=== PATIENT | male | born 1945 | race American Indian/Alaskan Native ===

== ENCOUNTER 2019-05-25 16:28 | Observation (INO) | payer MEDICARE ==
--- NOTE | 2019-05-25 17:19 | Emergency Department Report ---
ED Chest Pain HPI - General Chief Complaint: Chest Pain Stated Complaint: CHEST PAIN Time Seen by Provider: 05/25/19 17:18 Source: patient, EMS Mode of arrival: Stretcher Limitations: No Limitations - History of Present Illness Initial Comments: is a 74-year-old male that presents to emergency room with complaints of chest pain 1 hour. Patient states it started in the center of his chest and radiating left upper extremity. Patient states the pain is better with rest and worse with exertion. Patient states it is a 10 out of 10 with exertion and a 3 out of 10 rest. Patient denies shortness of breath. Patient denies MO history. Patient states she has a past medical history of diabetes and hypertension. MD Complaint: chest pain -: Sudden Onset: during exertion Severity scale (0 -10): 5 Quality: aching Consistency: constant Improves With: rest Worsens With: exertion re: denies: nausea, vomting, diaphoresis, dyspnea, sense of impending doom Other Symptoms: denies: cough, fever, syncope, rash, acid taste in mouth, leg swelling, palpitations, burping Treatments Prior to Arrival: none Aspirin use within the Past 7 Days: (1) Yes - Related Data On Oral Contraceptives: No Allergies Allergy/AdvReac Type Severity Reaction Status Date / Time No Known Allergies Allergy Verified 05/25/19 20:47 Heart Score - HEART Score History: Moderately suspicious EKG: Non-specific Age: > 65 Risk factors: 1-2 risk factors Troponin: < normal limit HEART Score: 5 ED Review of Systems ROS: Stated complaint: CHEST PAIN Other details as noted in HPI Constitutional: denies: chills, fever Eyes: denies: eye pain, eye discharge, vision change ENT: denies: ear pain, throat pain Respiratory: denies: cough, shortness of breath, wheezing Cardiovascular: chest pain. denies: palpitations Endocrine: no symptoms reported Gastrointestinal: denies: abdominal pain, nausea, diarrhea Genitourinary: denies: urgency, dysuria Musculoskeletal: denies: back pain, joint swelling, arthralgia Skin: denies: rash, lesions Neurological: denies: headache, weakness, paresthesias Psychiatric: denies: anxiety, depression Hematological/Lymphatic: denies: easy bleeding, easy bruising ED Past Medical Hx - Past Medical History Previous Medical History?: Yes Hx Hypertension: Yes Hx Diabetes: Yes - Surgical History Past Surgical History?: No - Family History Family history: no significant - Social History Smoking Status: Former Smoker Substance Use Type: None ED Physical Exam - General Limitations: No Limitations General appearance: alert, in no apparent distress - Head Head exam: Present: atraumatic, normocephalic - Eye Eye exam: Present: normal appearance - ENT ENT exam: Present: mucous membranes moist - Neck Neck exam: Present: normal inspection - Respiratory Respiratory exam: Present: normal lung sounds bilaterally. Absent: respiratory distress, wheezes - Cardiovascular Cardiovascular Exam: Present: regular rate, normal rhythm. Absent: systolic murmur, diastolic murmur, rubs, gallop - GI/Abdominal GI/Abdominal exam: Present: soft, normal bowel sounds. Absent: tenderness - Rectal Rectal exam: Present: deferred - Extremities Exam Extremities exam: Present: normal inspection - Back Exam Back exam: Present: normal inspection - Neurological Exam Neurological exam: Present: alert, oriented X3 - Psychiatric Psychiatric exam: Present: normal affect, normal mood - Skin Skin exam: Present: warm, dry, intact, normal color. Absent: rash ED Course Vital Signs 05/25/19 05/25/19 05/25/19 17:13 17:19 17:30 Temperature 98.5 F Pulse Rate 112 H 110 H Respiratory 22 27 H Rate Blood Pressure 128/72 134/73 Blood Pressure 128/72 [Right] O2 Sat by Pulse 94 94 93 Oximetry 05/25/19 05/25/19 05/25/19 18:00 18:30 19:00 Temperature Pulse Rate 108 H 105 H 108 H Respiratory 18 22 18 Rate Blood Pressure 117/76 129/73 116/70 Blood Pressure [Right] O2 Sat by Pulse 93 92 Oximetry 05/25/19 05/25/19 05/25/19 19:18 19:30 19:41 Temperature 98.2 F Pulse Rate 110 H 109 H 107 H Respiratory 24 24 12 Rate Blood Pressure 128/80 128/80 Blood Pressure 128/80 [Right] O2 Sat by Pulse 99 Oximetry 05/25/19 05/25/19 05/25/19 19:51 20:00 20:11 Temperature Pulse Rate Respiratory 26 H 19 21 Rate Blood Pressure 128/80 130/83 130/83 Blood Pressure [Right] O2 Sat by Pulse Oximetry 05/25/19 20:20 Temperature Pulse Rate 110 H Respiratory 26 H Rate Blood Pressure 130/83 Blood Pressure [Right] O2 Sat by Pulse Oximetry - Reevaluation(s) Reevaluation #1: Discussed all results the patient. I discussed plan of patient. Patient will be admitted to the hospitalist service. Patient agrees to plan of care 05/25/19 19:14 - Consultations Consultation #1: Hospitalist consultation for admission. Hospitalist to admit patient. Bridge orders placed 05/25/19 19:14 TERRA score - Terra Score Age > 65: (1) Yes Aspirin use within the Past 7 Days: (1) Yes 3 or more CAD Risk Factors: (0) No 2 or more Angina events in past 24 hrs: (0) No Known CAD with more than 50% Stenosis: (0) No Elevated Cardiac Markers: (0) No ST Deviation Greater than 0.5mm: (0) No TERRA Score: 2 ED Medical Decision Making - Lab Data Result diagrams: 05/25/19 18:17 05/25/19 18:17 - EKG Data -: EKG Interpreted by [facility] EKG shows normal: sinus rhythm, axis, intervals, QRS complexes, ST-T waves Rate: tachycardia - Radiology Data Radiology results: report reviewed, image reviewed - Medical Decision Making Patient is a 74-year-old male presents emergency room with complaints of chest pain. Patient chest pain occurs during exertion and relieved with rest. Patient has history of diabetes. Patient's heart score greater than 2. Patient will be admitted to the hospital service for further evaluation treatment. Patient will require rule out for ACS. Patient's chest x-ray shows no acute findings. Patient's EKG and cardiac workup negative. Patient's labs unremarkable except for hyperglycemia. - Differential Diagnosis ACS. Chest pain. Diabetes. Critical Care Time: Yes Critical care attestation.: If time is entered above; I have spent that time in minutes in the direct care of this critically ill patient, excluding procedure time. 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
[2019-05-25] MEDS ORDERED: ASPIRIN PO ONE (18:13)
[2019-05-25 18:28] LABS: Basophils # (Auto) 0.1 K/mm3 (0.0-0.1); Basophils % (Auto) 1.3 % (0.0-1.8); Eosinophils # (Auto) 0.1 K/mm3 (0.0-0.4); Eosinophils % (Auto) 1.5 % (0.0-4.3); Hematocrit 52.7 % (35.5-45.6); Hemoglobin 17.8 gm/dl (11.8-15.2); Lymphocytes # (Auto) 0.8 K/mm3 (1.2-5.4); Lymphocytes % (Auto) 13.8 % (13.4-35.0); Mean Corpuscular HGB Conc 34 % (32-34); Mean Corpuscular Volume 89 fl (84-94); Monocytes # (Auto) 0.4 K/mm3 (0.0-0.8); Monocytes % (Auto) 6.5 % (0.0-7.3); Platelet Count 231 K/mm3 (140-440); Red Blood Count 5.93 M/mm3 (3.65-5.03); Red Cell Distribution Width 14.1 % (13.2-15.2)
[2019-05-25 18:51] LABS: Alanine Aminotransferase 11 units/L (7-56); Albumin 3.9 g/dL (3.9-5); BUN/Creatinine Ratio 19; Blood Urea Nitrogen 19 mg/dL (9-20); Calcium 9.5 mg/dL (8.4-10.2); Hemolysis Index 16
--- NOTE | 2019-05-25 19:20 | XRay Report ---
CHEST 1 VIEW INDICATION: Chest Pain COMPARISON: One day prior. FINDINGS: Support devices: None Heart: Normal Lungs/Pleura: No acute pulmonary or pleural findings. IMPRESSION: 1. Negative study. Signer Name: Yeison Armenta MD Signed: 05/25/2019 7:16 PM Workstation Name: [id number]
[2019-05-25] MEDS ORDERED: TYLENOL PO PRN (20:34)
[2019-05-25] MEDS ORDERED: ZOFRAN IV PRN (20:34)
[2019-05-25] MEDS ORDERED: SODIUM CHLORIDE FLUSH SYRINGE 10 ML IV PRN (20:34)
--- NOTE | 2019-05-25 20:34 | History and Physical Report ---
History of Present Illness Date of examination: 05/25/19 Date of admission: 05/25/19 19:18 Chief complaint: Chest pain for one day History of present illness: 74-year-old male that presents to emergency room with complaints of chest pain 1 hour. Patient states it started in the center of his chest and radiating left upper extremity. Patient states the pain is better with rest and worse with exertion. Patient states it is a 10 out of 10 with exertion and a 3 out of 10 rest. Patient denies shortness of breath. Patient denies VT history. Patient states she has a past medical history of diabetes and hypertension. Past Medical History Previous Medical History?: Yes Hypertension: Yes Diabetes: Yes Surgical History None Social History Smoking Status: Former Smoker Substance Use Type: None Family History Hypertension Review of Systems ROS: Stated complaint: CHEST PAIN Other details as noted in HPI Constitutional: denies: chills, fever Eyes: denies: eye pain, eye discharge, vision change ENT: denies: ear pain, throat pain Respiratory: denies: cough, shortness of breath, wheezing Cardiovascular: chest pain. denies: palpitations Endocrine: no symptoms reported Gastrointestinal: denies: abdominal pain, nausea, diarrhea Genitourinary: denies: urgency, dysuria Musculoskeletal: denies: back pain, joint swelling, arthralgia Skin: denies: rash, lesions Neurological: denies: headache, weakness, paresthesias Psychiatric: denies: anxiety, depression Hematological/Lymphatic: denies: easy bleeding, easy bruising Medications and Allergies Allergies Allergy/AdvReac Type Severity Reaction Status Date / Time No Known Allergies Allergy Verified 05/25/19 20:47 Home Medications Medication Instructions Recorded Confirmed Last Taken Type Aspirin [Aspirin BABY CHEW TAB] 81 mg PO QDAY 05/25/19 05/25/19 Unknown History AtorvaSTATin [Lipitor] 20 mg PO QHS 05/25/19 05/25/19 Unknown History Calcium Carbonate/Vitamin D3 2 each PO DAILY 05/25/19 05/25/19 Unknown History [Calcium 250-Vit D3 125 Tablet] Cyanocobalamin [Vitamin B-12] 1,000 mcg IM QMONTH 05/25/19 05/25/19 04/28/19 08:00 History Empagliflozin [Jardiance] 10 mg PO DAILY 05/25/19 05/26/19 Unknown History Lidocaine [Lidocaine CREAM] 5 gm TP DAILY 05/25/19 05/25/19 Unknown History Losartan [Cozaar] 100 mg PO QDAY 05/25/19 05/25/19 Unknown History Metformin HCl [Glucophage] 1,000 mg PO BID 05/25/19 05/25/19 Unknown History Multivit with Iron,Minerals 1 each PO DAILY 05/25/19 05/25/19 Unknown History [Spectravite Senior] Sildenafil Citrate 100 mg PO DAILY PRN 05/25/19 05/25/19 Unknown History Sitagliptin Phosphate [Januvia] 100 mg PO DAILY 05/25/19 05/26/19 Unknown Histo ry Testosterone Cypionate 300 mg IM Q2W 05/25/19 05/25/19 05/13/19 08:00 History [Depo-Testosterone] amLODIPine [Norvasc] 10 mg PO DAILY 05/25/19 05/25/19 Unknown History glipiZIDE [Glucotrol] 10 mg PO BID 05/25/19 05/25/19 Unknown History hydroCHLOROthiazide [HCTZ] 25 mg PO QDAY 05/25/19 05/25/19 Unknown History raNITIdine HCl [Zantac] 150 mg PO BID PRN 05/25/19 05/25/19 Unknown History valACYclovir [Valtrex] 500 mg PO DAILY 05/25/19 05/26/19 Unknown History Exam - Constitutional Vitals: Temp Pulse Resp BP Pulse Ox 98.2 F 107 H 19 130/83 99 05/25/19 19:18 05/25/19 19:41 05/25/19 20:00 05/25/19 20:00 05/25/19 19:18 General appearance: Present: no acute distress, well-nourished - EENT Eyes: Present: PERRL ENT: hearing intact, clear oral mucosa - Neck Neck: Present: supple, normal ROM - Respiratory Respiratory effort: normal Respiratory: bilateral: CTA - Cardiovascular Heart Sounds: Present: S1 & S2. Absent: rub, click - Extremities Extremities: pulses symmetrical, No edema Peripheral Pulses: within normal limits - Abdominal General gastrointestinal: Present: soft, non-tender, non-distended, normal bowel sounds Male genitourinary: Present: normal - Integumentary Integumentary: Present: clear, warm, dry - Musculoskeletal Musculoskeletal: gait normal, strength equal bilaterally - Psychiatric Psychiatric: appropriate mood/affect, intact judgment & insight - Neurologic Neurologic: CNII-XII intact, moves all extremities Results - Labs CBC & Chem 7: 05/26/19 02:59 05/26/19 02:59 Labs: Laboratory Last Values WBC 6.1 K/mm3 (4.5-11.0) 05/25/19 18:17 RBC 5.93 M/mm3 (3.65-5.03) H 05/25/19 18:17 Hgb 17.8 gm/dl (11.8-15.2) H 05/25/19 18:17 Hct 52.7 % (35.5-45.6) H 05/25/19 18:17 MCV 89 fl (84-94) 05/25/19 18:17 MCH 30 pg (28-32) 05/25/19 18:17 MCHC 34 % (32-34) 05/25/19 18:17 RDW 14.1 % (13.2-15.2) 05/25/19 18:17 Plt Count 231 K/mm3 (140-440) 05/25/19 18:17 Lymph % (Auto) 13.8 % (13.4-35.0) 05/25/19 18:17 [place] % (Auto) 6.5 % (0.0-7.3) 05/25/19 18:17 Eos % (Auto) 1.5 % (0.0-4.3) 05/25/19 18:17 Baso % (Auto) 1.3 % (0.0-1.8) 05/25/19 18:17 Lymph # 0.8 K/mm3 (1.2-5.4) L 05/25/19 18:17 [place] # 0.4 K/mm3 (0.0-0.8) 05/25/19 18:17 Eos # 0.1 K/mm3 (0.0-0.4) 05/25/19 18:17 Baso # 0.1 K/mm3 (0.0-0.1) 05/25/19 18:17 Seg Neutrophils % 76.9 % (40.0-70.0) H 05/25/19 18:17 Seg Neutrophils # 4.7 K/mm3 (1.8-7.7) 05/25/19 18:17 Sodium 140 mmol/L (137-145) 05/25/19 18:17 Potassium 4.0 mmol/L (3.6-5.0) 05/25/19 18:17 Chloride 99.6 mmol/L (98-107) 05/25/19 18:17 Carbon Dioxide 25 mmol/L (22-30) 05/25/19 18:17 19 mmol/L 05/25/19 18:17 BUN 19 mg/dL (9-20) 05/25/19 18:17 1.0 mg/dL (0.8-1.5) 05/25/19 18:17 Estimated GFR > 60 ml/min 05/25/19 18:17 19 % 05/25/19 18:17 Glucose 179 mg/dL (75-100) H 05/25/19 18:17 Calcium 9.5 mg/dL (8.4-10.2) 05/25/19 18:17 0.60 mg/dL (0.1-1.2) 05/25/19 18:17 AST 13 units/L (5-40) 05/25/19 18:17 ALT 11 units/L (7-56) 05/25/19 18:17 64 units/L (35-129) 05/25/19 18:17 < 0.010 ng/mL (0.00-0.029) 05/25/19 18:17 6.9 g/dL (6.3-8.2) 05/25/19 18:17 3.9 g/dL (3.9-5) 05/25/19 18:17 1.3 % 05/25/19 18:17 Short CBC 05/25/19 05/26/19 Range/Units 18:17 02:59 WBC 6.1 5.2 (4.5-11.0) K/mm3 Hgb 17.8 H 16.8 H (11.8-15.2) gm/dl Hct 52.7 H 50.6 H (35.5-45.6) % Plt Count 231 225 (140-440) K/mm3 BMP 05/25/19 05/26/19 18:17 02:59 Sodium 140 143 Potassium 4.0 3.6 Chloride 99.6 103.4 Carbon Dioxide 25 27 BUN 19 21 H Creatinine 1.0 0.8 Glucose 179 H 112 H Calcium 9.5 9.2 Cardiac Enzymes 05/25/19 Range/Units 18:17 Troponin T < 0.010 (0.00-0.029) ng/mL Liver Function 05/25/19 05/26/19 Range/Units 18:17 02:59 Total Bilirubin 0.60 0.60 (0.1-1.2) mg/dL AST 13 11 (5-40) units/L ALT 11 10 (7-56) units/L Alkaline Phosphatase 64 60 (35-129) units/L Albumin 3.9 3.5 L (3.9-5) g/dL - Imaging and Cardiology EKG: report reviewed (Sinus tachycardia 111/min) Assessment and Plan Advance Directives: Yes (FC) VTE prophylaxis?: Chemical Plan of care discussed with patient/family: Yes - Patient Problems (1) Chest pain Current Visit: Yes Status: Acute Qualifiers: Chest pain type: unspecified Qualified Code(s): R07.9 - Chest pain, unspecified Plan to address problem: Chest pain r/o [place] protocol Lecxiscan in am serial troponins (2) T2DM (type 2 diabetes mellitus) Current Visit: Yes Status: Chronic Qualifiers: Diabetes mellitus skilled nursing insulin use: without termite technician use Plan to address problem: Coverage for now Check A1c (3) HTN (hypertension) Current Visit: Yes Status: Chronic Qualifiers: Hypertension type: essential hypertension Qualified Code(s): I10 - Essential (primary) hypertension Plan to address problem: Cont antihypertensives (4) DVT prophylaxis Current Visit: Yes Status: Acute Plan to address problem: On lOvenox and GI prophylaxis
[2019-05-25] MEDS ORDERED: REGLAN IV PRN (20:35)
[2019-05-25] MEDS ORDERED: DILAUDID IV PRN (20:35)
[2019-05-25] MEDS ORDERED: NACL 0.9% 1000 ML 1,000 ML IV SCH (21:00)
[2019-05-25] MEDS: LOVENOX SUB-Q SCH (21:59)
[2019-05-25] MEDS: PEPCID IV SCH (21:59)
[2019-05-25] MEDS: SODIUM CHLORIDE FLUSH SYRINGE 10 ML IV SCH (22:00)
[2019-05-26 04:13] LABS: Basophils # (Auto) 0.1 K/mm3 (0.0-0.1); Basophils % (Auto) 1.1 % (0.0-1.8); Eosinophils # (Auto) 0.2 K/mm3 (0.0-0.4); Eosinophils % (Auto) 3.8 % (0.0-4.3); Hematocrit 50.6 % (35.5-45.6); Hemoglobin 16.8 gm/dl (11.8-15.2); Lymphocytes # (Auto) 1.6 K/mm3 (1.2-5.4); Lymphocytes % (Auto) 29.9 % (13.4-35.0); Mean Corpuscular HGB Conc 33 % (32-34); Mean Corpuscular Volume 90 fl (84-94); Monocytes # (Auto) 0.5 K/mm3 (0.0-0.8); Platelet Count 225 K/mm3 (140-440); Red Blood Count 5.63 M/mm3 (3.65-5.03); Red Cell Distribution Width 14.2 % (13.2-15.2)
[2019-05-26 04:38] LABS: Alanine Aminotransferase 10 units/L (7-56); Albumin 3.5 g/dL (3.9-5); BUN/Creatinine Ratio 26; Blood Urea Nitrogen 21 mg/dL (9-20); Calcium 9.2 mg/dL (8.4-10.2); Hemolysis Index 16
[2019-05-26] MEDS ORDERED: LEXISCAN IV ONE (09:30)
[2019-05-26] MEDS ORDERED: CALCIUM CARBONATE PO SCH (10:00)
[2019-05-26] MEDS ORDERED: NON-FORMULARY (Sitagliptin Phosphate [Januvia] 100 MG) PO SCH (10:00)
[2019-05-26] MEDS ORDERED: BABY ASPIRIN PO SCH (10:00)
[2019-05-26] MEDS ORDERED: VITAMIN D3 PO SCH (10:00)
[2019-05-26] MEDS ORDERED: HCTZ PO SCH (10:00)
[2019-05-26] MEDS ORDERED: NORVASC PO SCH (10:00)
[2019-05-26] MEDS ORDERED: VALTREX PO SCH (10:00)
[2019-05-26] MEDS ORDERED: COZAAR PO SCH (10:00)
[2019-05-26] MEDS ORDERED: NON-FORMULARY (Metformin Hcl [Glucophage] 1,000 MG) PO SCH (10:00)
[2019-05-26] MEDS ORDERED: NON-FORMULARY (Losartan [Cozaar] 100 MG) PO SCH (10:00)
[2019-05-26] MEDS ORDERED: EMPAGLIFLOZIN 10 MG PO SCH (10:00)
--- NOTE | 2019-05-26 11:36 | Discharge Summary ---
Providers - Providers Date of Admission: 05/25/19 19:18 Date of discharge: 05/26/19 Attending physician: KYLAH GOODEN [facility] Condition: Stable Hospital course: Patient is a 74 yo man with a history of hypertension and diabetes mellitus who presented with chest pains (1) Chest pain Current Visit: Yes Status: Acute Qualifiers: Chest pain type: unspecified Qualified Code(s): R07.9 - Chest pain, unspecified Plan to address problem: Chest pain r/o [place] protocol Lecxiscan serial troponins negative (2) T2DM (type 2 diabetes mellitus) Current Visit: Yes Status: Chronic 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 Plan to address problem: Coverage for now Check A1c (3) HTN (hypertension) Current Visit: Yes Status: Chronic Qualifiers: Hypertension type: essential hypertension Qualified Code(s): I10 - Essential (primary) hypertension Plan to address problem: Cont antihypertensives (4) DVT prophylaxis Current Visit: Yes Status: Acute Plan to address problem: On lOvenox and GI prophylaxis Disposition: TO HOME OR SELFCARE Time spent for discharge: 31 minutes Exam - Physical Exam Narrative exam: Gen: WDWN, NAD, Awake, Alert, Orientated HEENT: NCAT, EOMI, PERRL, OP Clear Neck: supple, no adenopathy, no thyromegaly, no JVD CVS/Heart: RRR, normal S1S2, pulses present bilaterally Chest/Lungs: CTA B, Symmetrical chest expansion, good air entry bilaterally GI/Abdomen: soft, NTND, good bowel sounds, no guarding or rebound /Bladder: no suprapubic tenderness, no CVA or paraspinal tenderness Extermity/Skin: no c/c/e, no obvious rash MSK: FROM x 4 Neuro: CN 2-12 grossly intact, no new focal deficits Psych: calm - Constitutional Vitals: Temp Pulse Resp BP Pulse Ox 97.8 F 81 20 133/61 98 05/26/19 08:59 05/26/19 08:59 05/26/19 08:59 05/26/19 08:59 05/26/19 08:59 Plan Activity: other (no strenous activity unless cleared by PCP) Diet: low salt, diabetic Special Instructions: record daily BP diary, record blood sugar diary (three times a day) [facility] [Primary Care Provider[facility] - 3-5 Days
[2019-05-26] MEDS: TRADJENTA PO SCH (14:35)
[2019-05-26] MEDS: GLUCOTROL PO SCH ×2 (14:36→18:51)
[2019-05-26] MEDS: GLUCOPHAGE PO SCH ×2 (14:36→18:51)
[2019-05-26] MEDS: PEPCID IV SCH ×2 (14:36→21:27)
[2019-05-26] MEDS: SODIUM CHLORIDE FLUSH SYRINGE 10 ML IV SCH ×2 (14:37→21:28)
[2019-05-26] MEDS: LOVENOX SUB-Q SCH (21:29)
--- NOTE | 2019-05-26 23:08 | Progress Note ---
Assessment and Plan Assessment and plan: Patient is a 74 yo man with a history of hypertension and diabetes mellitus who presented with chest pains (1) Chest pain Current Visit: Yes Status: Acute Qualifiers: Chest pain type: unspecified Qualified Code(s): R07.9 - Chest pain, unspecified Plan to address problem: Chest pain r/o [place] protocol Lecxiscan serial troponins negative (2) T2DM (type 2 diabetes mellitus) Current Visit: Yes Status: Chronic Qualifiers: Diabetes mellitus long-term insulin use: without machine long goods helper use Plan to address problem: Coverage for now Check A1c (3) HTN (hypertension) Current Visit: Yes Status: Chronic Qualifiers: Hypertension type: essential hypertension Qualified Code(s): I10 - Essential (primary) hypertension Plan to address problem: Cont antihypertensives (4) DVT prophylaxis Current Visit: Yes Status: Acute Plan to address problem: On lOvenox and GI prophylaxis Still Waiting on stress test results, which was not ready by Dr. Bernarda Young. History Interval history: Patient seen and examined. NO new compliants Hospitalist Physical - Physical exam Narrative exam: Gen: WDWN, NAD, Awake, Alert, Orientated HEENT: NCAT, EOMI, PERRL, OP Clear Neck: supple, no adenopathy, no thyromegaly, no JVD CVS/Heart: RRR, normal S1S2, pulses present bilaterally Chest/Lungs: CTA B, Symmetrical chest expansion, good air entry bilaterally GI/Abdomen: soft, NTND, good bowel sounds, no guarding or rebound /Bladder: no suprapubic tenderness, no CVA or paraspinal tenderness Extermity/Skin: no c/c/e, no obvious rash MSK: FROM x 4 Neuro: CN 2-12 grossly intact, no new focal deficits Psych: calm - Constitutional Vitals: Temp Pulse Resp BP Pulse Ox 98.3 F 81 16 139/80 96 05/26/19 19:43 05/26/19 19:45 05/26/19 19:43 05/26/19 19:43 05/26/19 20:02 General appearance: Present: no acute distress, well-nourished Results - Labs CBC & Chem 7: 05/26/19 02:59 05/26/19 02:59 Labs: Laboratory Last Values WBC 5.2 K/mm3 (4.5-11.0) 05/26/19 02:59 RBC 5.63 M/mm3 (3.65-5.03) H 05/26/19 02:59 Hgb 16.8 gm/dl (11.8-15.2) H 05/26/19 02:59 Hct 50.6 % (35.5-45.6) H 05/26/19 02:59 MCV 90 fl (84-94) 05/26/19 02:59 MCH 30 pg (28-32) 05/26/19 02:59 MCHC 33 % (32-34) 05/26/19 02:59 RDW 14.2 % (13.2-15.2) 05/26/19 02:59 Plt Count 225 K/mm3 (140-440) 05/26/19 02:59 Lymph % (Auto) 29.9 % (13.4-35.0) 05/26/19 02:59 [place] % (Auto) 9.0 % (0.0-7.3) H 05/26/19 02:59 Eos % (Auto) 3.8 % (0.0-4.3) 05/26/19 02:59 Baso % (Auto) 1.1 % (0.0-1.8) 05/26/19 02:59 Lymph # 1.6 K/mm3 (1.2-5.4) 05/26/19 02:59 [place] # 0.5 K/mm3 (0.0-0.8) 05/26/19 02:59 Eos # 0.2 K/mm3 (0.0-0.4) 05/26/19 02:59 Baso # 0.1 K/mm3 (0.0-0.1) 05/26/19 02:59 Seg Neutrophils % 56.2 % (40.0-70.0) 05/26/19 02:59 Seg Neutrophils # 2.9 K/mm3 (1.8-7.7) 05/26/19 02:59 Sodium 143 mmol/L (137-145) 05/26/19 02:59 Potassium 3.6 mmol/L (3.6-5.0) 05/26/19 02:59 Chloride 103.4 mmol/L (98-107) 05/26/19 02:59 Carbon Dioxide 27 mmol/L (22-30) 05/26/19 02:59 16 mmol/L 05/26/19 02:59 BUN 21 mg/dL (9-20) H 05/26/19 02:59 0.8 mg/dL (0.8-1.5) 05/26/19 02:59 Estimated GFR > 60 ml/min 05/26/19 02:59 26 % 05/26/19 02:59 Glucose 112 mg/dL (75-100) H 05/26/19 02:59 POC Glucose 202 (70-105) H 05/26/19 12:38 7.7 % (4-6) H 05/25/19 21:00 Calcium 9.2 mg/dL (8.4-10.2) 05/26/19 02:59 0.60 mg/dL (0.1-1.2) 05/26/19 02:59 AST 11 units/L (5-40) 05/26/19 02:59 ALT 10 units/L (7-56) 05/26/19 02:59 60 units/L (35-129) 05/26/19 02:59 < 0.010 ng/mL (0.00-0.029) 05/26/19 13:05 6.5 g/dL (6.3-8.2) 05/26/19 02:59 3.5 g/dL (3.9-5) L 05/26/19 02:59 1.2 % 05/26/19 02:59 Active Medications - Current Medications Current Medications: Generic Name Dose Route Start Last Admin Trade Name Erlinq PRN Reason Stop Dose Admin Acetaminophen 650 mg 05/25/19 20:34 Tylenol PO Q4H PRN Pain MILD(1-3)/Fever >100.5/BEE Amlodipine Besylate 10 mg 05/26/19 10:00 05/26/19 14:36 Norvasc PO 10 mg DAILY [facility] Administration Aspirin 81 mg 05/26/19 10:00 05/26/19 14:35 Baby Aspirin PO 81 mg QDAY [facility] Administration Atorvastatin Calcium 20 mg 05/26/19 22:00 05/26/19 21:28 Lipitor PO 20 mg QHS [facility] Administration Calcium/Vitamin D 1 each 05/27/19 10:00 Oysco D 500 Mg-200 Unit PO DAILY [facility] Cyanocobalamin 1,000 mcg 05/29/19 08:00 Vitamin B-12 IM QMONTH [facility] Enoxaparin Sodium 40 mg 05/25/19 22:00 05/26/19 21:29 Lovenox SUB-Q 40 mg QDAY@2200 [facility] Administration Famotidine 20 mg 05/25/19 22:00 05/26/19 21:27 Pepcid IV Not Given BID [facility] Glipizide 10 mg 05/26/19 08:00 05/26/19 18:51 Glucotrol PO 10 mg BIDDIAB [facility] Administration Hydrochlorothiazide 25 mg 05/26/19 10:00 05/26/19 14:36 Hctz PO 25 mg QDAY [facility] Administration Hydromorphone HCl 0.5 mg 05/25/19 20:35 Dilaudid IV Q3H PRN Pain , Severe (7-10) Linagliptin 5 mg 05/26/19 10:00 05/26/19 14:35 Tradjenta PO 5 mg QDDIAB [facility] Administration Losartan Potassium 100 mg 05/26/19 10:00 05/26/19 14:35 Cozaar PO 100 mg QDAY [facility] Administration Metformin HCl 1,000 mg 05/26/19 09:30 05/26/19 18:51 Glucophage PO 1,000 mg BIDDIAB [facility] Administration Metoclopramide HCl 10 mg 05/25/19 20:35 Reglan IV Q6H PRN Nausea And Vomiting Miscellaneous Medication 10 mg 05/26/19 10:00 Empagliflozin [Jardiance] PO DAILY [facility] Ondansetron HCl 4 mg 05/25/19 20:34 Zofran IV Q8H PRN Nausea And Vomiting Sodium Chloride 10 ml 05/25/19 22:00 05/26/19 21:28 Sodium Chloride Flush Syringe 10 Ml IV 10 ml BID [facility] Administration Sodium Chloride 10 ml 05/25/19 20:34 Sodium Chloride Flush Syringe 10 Ml IV PRN PRN LINE FLUSH Valacyclovir HCl 500 mg 05/26/19 10:00 05/26/19 14:36 Valtrex PO 500 mg DAILY [facility] Administration
--- NOTE | 2019-05-27 04:54 | Treadmill Report ---
MYOCARDIAL PERFUSION IMAGING STUDY INTERPRETATION: Resting scan with technetium-99 showed homogeneous radioisotope activity throughout the myocardium. On post-Lexiscan, the images revealed homogeneous radioisotope activity. Left ventricular cavity was small. Gated scan revealed ejection fraction of 83%. This is probably overestimation due to small ventricular cavity. IMPRESSION: 1. Negative for ischemia. 2. Good left ventricular function. JOB# [id number] SHERINE/XIOMARA
[2019-05-27] MEDS: GLUCOTROL PO SCH (09:09)
[2019-05-27] MEDS: TRADJENTA PO SCH (09:09)
[2019-05-27] MEDS: GLUCOPHAGE PO SCH (09:09)
[2019-05-27 09:22] VITALS: BP 124/79
[2019-05-27] MEDS ORDERED: OYSCO D 500 MG-200 UNIT PO SCH (10:00)
--- NOTE | 2019-05-28 07:15 | Discharge Summary ---
Providers - Providers Date of Admission: 05/25/19 19:18 Attending physician: TOMASZ RICKETTS MD Primary care physician: [facility] MD MANOHAR Hospitalization Reason for admission: chest pain Condition: Stable Hospital course: Patient is a 74 yo man with a history of hypertension and diabetes mellitus who presented with chest pains (1) Chest pain Current Visit: Yes Status: Acute Qualifiers: Chest pain type: unspecified Qualified Code(s): R07.9 - Chest pain, unspecified Plan to address problem: Chest pain r/o NV protocol Lecxiscan serial troponins negative (2) T2DM (type 2 diabetes mellitus) Current Visit: Yes Status: Chronic Qualifiers: Diabetes mellitus chcf insulin use: without chcf use Plan to address problem: Coverage for now Check A1c (3) HTN (hypertension) Current Visit: Yes Status: Chronic Qualifiers: Hypertension type: essential hypertension Qualified Code(s): I10 - Essential (primary) hypertension Plan to address problem: Cont antihypertensives (4) DVT prophylaxis Current Visit: Yes Status: Acute Plan to address problem: On lOvenox and GI prophylaxis Stress test result returned and was noted to be negative and patient was discharged. The patient left prior to my evaluation. This last progress note is used as discharge summary Disposition: DC-01 TO HOME OR SELFCARE Time spent for discharge: 35 mins Core Measure Documentation - Palliative Care Palliative Care/ Comfort Measures: Not Applicable - Core Measures Any of the following diagnoses?: none Exam - Constitutional Vitals: Temp Pulse Resp BP Pulse Ox 97.7 F 101 H 16 124/79 95 05/27/19 09:00 05/27/19 09:00 05/27/19 09:00 05/27/19 09:00 05/27/19 03:45 Plan Follow up with: GALILEO XAVIER MD [Primary Care Provider] - 3-5 Days
[2019-05-29] MEDS ORDERED: VITAMIN B-12 IM SCH (08:00)
== END 2019-05-27 09:22 | disposition home or self-care (01) ==
LOC: ED 16:28 → 4A 19:18
PROVIDERS: ADMIT Internal Medicine; ATTEND Internal Medicine
DX: R07.89 Other chest pain (principal); E11.9 Type 2 diabetes mellitus without complications; I10 Essential (primary) hypertension; Z87.891 Personal history of nicotine dependence
CPT/HCPCS: 36415; 71045; 78452; 80053; 82962; 83036; 84484; 85025; 93005; 93010; 93017; 96372; 96374; 96375; 96376; 99291; A9270; A9502; G0378; J1170; J1650; J2785; J7030